=== PATIENT | male | born 1950 | race African-American/Black ===

== ENCOUNTER 2019-07-06 07:54 | Outpatient (CLI) | payer MEDICARE, SELFPAY ==
--- NOTE | 2019-07-13 12:22 | WPDSIXMINUTE ---
Six Minute Walk Six Minute Walk: DOS: 07/06/2019 REQUESTING: Trung Steen MD REASON FOR TESTING: severe COPD SIX MINUTE WALK This test was conducted per ATS guidelines. The test was conducted on room air and the patient used his walker. Initial saturation was 94% and pulse 89. The patient walked for 6 minutes with one stop lasting 30 seconds due to arm pain. The final pulse was 117 beats per minute and saturation 92%. He had increase in dyspnea and fatigue at the end of the walk. Distance walked was 182.8 m. This is less than expected for his age. IMPRESSION : This walk study shows no significant hypoxemia. No supplemental oxygen is indicated with exertion. Distance walked is less than expected for age. Jenae Sargent MD
== END 2019-07-06 07:55 | disposition home or self-care (01) ==
DX: J44.9 Chronic obstructive pulmonary disease, unspecified (principal)
CPT/HCPCS: 94618

== ENCOUNTER 2019-07-09 08:30 | Outpatient (RCR) | payer MEDICARE, SELFPAY ==
--- NOTE | 2019-07-11 09:25 | PCCPR ---
Program is temporarily suspended due to COVID outbreak.
--- NOTE | 2019-07-18 11:06 | PCCPR ---
Called patient in regards to the temporary closure of our department continuing until at least August 15. Patient states he was hospitalized for a few days after coming to his orientation r/t CHF exacerbation. He states he has been trying to watch his diet and sodium intake. However, he informed me that he went to [facility] and noticed the chicken was salty but only ate a couple pieces and states he gained 1.8 pounds. Education was given regarding eating out and how important it is for his heart failure to watch salt intake. He states he is trying to cook more at home and is using more seasonings. He had many questions in regards to the Coronavirus. Answered them as able. Patient provided us with an email address and we will email out temporary home exercise information. Will continue to follow patient weekly.
--- NOTE | 2019-07-31 07:46 | PCCPR ---
Pt called, stated he is walking in place, lifting 3lb weights for 15 minutes and stretching for 15 minutes. He has back pain with the routine that loosens up during the day. I suggested he try marching by sitting in a chair, or holding off on walking one week and/or weights for one week to see if his back pain resolves.
--- NOTE | 2019-07-31 10:48 | PCCPR ---
Valentín has been doing mostly free weights 3 sets for upper body and 10 sit to stands for his lower body strength trng. followed by stretching. His walking is currently on hold due to his PCP recommendation for low back pain. He is taking tylenol for his discomfort. He has not been able to resume work due to the covid crisis and is still caring for his 98 y/o mother. States he has a Rec bike at home however in the garage and does not have access to it. Explained we will still give a weekly call to check on him and let him know when we can resume service.
--- NOTE | 2019-08-08 13:28 | PCCPR ---
Weekly update call-States he is exercising everyday but isnt doing any aerobic activity. Encouraged him to get in a couple days of aerobic activity and increase as tolerated. He states he has been doing weights and stretches.
--- NOTE | 2019-08-15 13:01 | PCCPR ---
Weekly update call-informed patient of continued closure through the month of August due to the extension of the retirement in place order. No questions at this time.
--- NOTE | 2019-08-30 12:51 | PCCPR ---
Starting Bi-Weekly Calls. Spoke with patient. No questions or concerns at this time.
--- NOTE | 2019-09-13 13:40 | PCCPR ---
Spoke with Valentín on the phone today, he continues to workout at home, doing stretching and weights everyday for 35 min. Encouraged him to incorporate cardio as best as possible, suggesting to do some walking inside his home.
--- NOTE | 2019-10-05 13:43 | PCCPR ---
Spoke with Valentín today, he is exercising several days a week doing stretching and weights. Encouraged cardio. Valentín is also trying to loose weight and is recording his food intake daily. Updated on plans for reopening, no questions.
--- NOTE | 2019-10-11 14:55 | PCCPR ---
Spoke with Valentín today to let him know that we are not accepting pulmonary patients back at this time and that we would let him know as soon as he is able to return.
--- NOTE | 2019-12-07 11:31 | PCCPR ---
Spoke with Valentín states was hospitalized for aspiration pneumonia. He is out now however not sure he is able to return on 12/11/19. Explained he would need a release from his PCP or Drilling Superintendent to return. He plans to let us know on Tuesday.
== END 2019-07-09 23:59 | disposition home or self-care (01) ==
LOC: ANHCPREHAB 08:30
DX: J44.9 Chronic obstructive pulmonary disease, unspecified (principal)
CPT/HCPCS: 97150; G0424

== ENCOUNTER 2020-03-07 09:30 | Outpatient (RCR) | payer MEDICARE, SELFPAY ==
--- NOTE | 2020-01-25 10:03 | PCCPR ---
Sent home for Cardiac rehab not feeling well Valentín arrived in our waiting area c/o he did not feel well. C/o his arthritis has been bothering him and due to this has been sleeping in his recliner the last 3 nights. He feels fatigued and tired. He denies using his CPAP since it is located in his Bedroom. He also states he does not remember to use his Breo inhaler regularly. He also was not wearing his portable O2. He was afebrile with O2 Sat 94 % on RA. Encouraged him to use CPAP tonight even if he needs to move near his recliner and try to take his scheduled med and explained how and why to use his rescue inhaler. Lungs were clear to auscultation however distant and diminished. Sent him home walked him out with O2 2 L. We encouraged him to call his MD and report these findings.
== END 2020-03-07 23:59 | disposition home or self-care (01) ==
LOC: ANHCPREHAB 09:30
DX: J44.9 Chronic obstructive pulmonary disease, unspecified (principal)
CPT/HCPCS: 97150; G0424

== ENCOUNTER 2022-12-13 12:16 | Emergency (ER) | payer MEDICARE, SELFPAY ==
--- NOTE | 2022-12-13 12:22 | ED.URI ---
HPI - URI/Sore Throat General Chief Complaint: Upper Respiratory Infection Stated Complaint: Throat/Cough/Fatigue Time Seen by Provider: 12/13/22 12:22 Source: patient Mode of arrival: ambulatory Limitations: no limitations History of Present Illness HPI Narrative: Sven is a 72-year-old male patient presenting to the clinic today with complaints of sore throat, cough, and fatigue x1 day. He reports no known fever, body aches, or chills. Does have history of COPD/emphysema. Does report that he feels slightly more short of breath than normal. Nonproductive cough. No known exposure to anybody with COVID, flu, or strep. MD elicited complaint: cough, sore throat, nasal congestion and other (Fatigue) Related Data Home Medications Medication Instructions Recorded Confirmed amlodipine 10 mg tablet (Norvasc) 10 mg PO DAILY 07/05/19 12/21/19 apixaban 5 mg tablet (Eliquis) 5 mg PO BID 07/05/19 12/21/19 aripiprazole 20 mg tablet (Abilify) 20 mg PO HS 07/05/19 12/21/19 asenapine maleate 10 mg sublingual 10 mg sublingual DAILY 07/05/19 12/13/22 tablet (Saphris) cyanocobalamin (vitamin B-12) 1,000 mcg PO DAILY 07/05/19 12/13/22 1,000 mcg tablet (Vitamin B-12) ferrous sulfate 325 mg (65 mg 325 mg PO BID 07/05/19 12/13/22 iron) tablet finasteride 5 mg tablet 5 mg PO DAILY 07/05/19 12/13/22 furosemide 40 mg tablet (Lasix) 60 mg PO DAILY 07/05/19 12/13/22 hydralazine 25 mg tablet 25 mg PO TID 07/05/19 12/21/19 losartan 100 mg tablet 100 mg PO DAILY 07/05/19 12/21/19 metoprolol tartrate 100 mg tablet 100 mg PO DAILY 07/05/19 12/21/19 oxcarbazepine 300 mg tablet 300 mg PO TID 07/05/19 12/13/22 (Trileptal) paroxetine HCl 30 mg tablet (Paxil) 30 mg PO BID 07/05/19 12/13/22 spironolactone 25 mg tablet 12.5 mg PO DAILY 07/05/19 12/21/19 tamsulosin 0.4 mg capsule 0.4 mg PO DAILY 07/05/19 12/21/19 clonazepam 1 mg tablet (Klonopin) 1 mg PO QID 12/21/19 12/13/22 fluticasone furoate 200 1 inh inhalation DAILY 12/21/19 12/21/19 mcg-vilanterol 25 mcg/dose inhalation powder (Breo Ellipta) ipratropium 0.5 mg-albuterol 3 mg 3 ml inhalation Q4H PRN Shortness 12/21/19 12/13/22 (2.5 mg base)/3 mL nebulization Of Breath soln multivitamin 1 tablet PO DAILY 12/21/19 12/13/22 pantoprazole 40 mg tablet,delayed 40 mg PO BID 12/21/19 12/13/22 release semaglutide 0.25 mg or 0.5 mg (2 0.5 mg subcut WEEKLY 12/21/19 12/13/22 mg/1.5 mL) subcutaneous pen injector ([employer] IncempBoxTone) Allergies Allergy/AdvReac Type Severity Reaction Status Date / Time baclofen Allergy Mild Rash Verified 12/13/22 12:31 Review of Systems Review of Systems: Pertinent positives per HPI. Patient denies any fever, chills, rash, headache, visual changes, dizziness, chest pain, palpitations, nausea, vomiting, diarrhea, constipation, abdominal pain, or any urinary issues. [facility] Past Medical History Medical History Aortic valve insufficiency Bipolar 1 disorder with moderate jacob GERD (gastroesophageal reflux disease) Hyperlipemia Hypertension Hyponatremia Intermittent asthma without complication Obesity ALEXANDER (obstructive sleep apnea) Osteoarthritis Pulmonary embolism Pulmonary hypertension Family History Family History Father Hypertension Heart disease Heart attack Cerebrovascular accident Cancer throat & prostate Mother Hypertension Sibling Hypertension High cholesterol Sibling Hypertension Sibling Hypertension Social History Social History Smoking packs per day: 2 Smoking cigarettes per day: 40.0 Years smoked: 28 Smoking pack-years: 56.00 Smoking status: Former smoker Tobacco type: cigarettes Smoking end date: 04/18/99 Gender identity (if verbalized by the patient): Male Comments At the time of my signature, I reviewed and agree with
[2022-12-13 12:33] VITALS: BP 145/83; PULSE 88; RESP 20; TEMP 36.8; O2SAT 98
[2022-12-13 12:45] VITALS: BP 145/83; PULSE 88; RESP 20; TEMP 36.8; O2SAT 98
== END 2022-12-13 13:06 | disposition home or self-care (01) ==
PROVIDERS: Emergency Provider Nurse Practitioner Family
DX: B34.9 Viral infection, unspecified (principal); J06.9 Acute upper respiratory infection, unspecified; J02.9 Acute pharyngitis, unspecified; Z87.891 Personal history of nicotine dependence; K21.9 Gastro-esophageal reflux disease without esophagitis; E78.5 Hyperlipidemia, unspecified; J44.9 Chronic obstructive pulmonary disease, unspecified; I10 Essential (primary) hypertension; E66.9 Obesity, unspecified; Z68.43 Body mass index [BMI] 50.0-59.9, adult; M19.90 Unspecified osteoarthritis, unspecified site; Z86.711 Personal history of pulmonary embolism; I27.20 Pulmonary hypertension, unspecified; I35.1 Nonrheumatic aortic (valve) insufficiency; F31.9 Bipolar disorder, unspecified; Z79.01 Long term (current) use of anticoagulants
CPT/HCPCS: 87081; 87804; 87880; 99213; G0463